=== PATIENT | female | born 1980 | race Caucasian/White ===

== ENCOUNTER 2023-08-19 13:50 | Emergency (ER) | payer MEDICAID ==
[~2023-08-19] VITALS: Ht 165 cm; Wt 86.0 kg
[2023-08-19 14:27] LABS: ALBUMIN 3.8 GM/DL (3.2-4.5); POTASSIUM 3.8 MMOL/L (3.6-5.0)
[2023-08-19 14:28] LABS: CALCIUM 9.2 MG/DL (8.5-10.1)
[2023-08-19 14:29] LABS: BASOPHILS # (AUTO) 0.1 10^3/uL (0.0-0.1); BASOPHILS % (AUTO) 1 % (0-10); EOSINOPHILS # (AUTO) 0.5 10^3/uL (0.0-0.3); EOSINOPHILS % (AUTO) 5 % (0-10); HEMATOCRIT 38 % (35-52); HEMOGLOBIN 12.8 g/dL (11.5-16.0); LYMPHOCYTES # (AUTO) 4.6 10^3/uL (1.0-4.0); LYMPHOCYTES % (AUTO) 43 % (12-44); MEAN CORPUSCULAR HEMOGLOBIN 33 pg (25-34); MEAN CORPUSCULAR HGB CONC 33 g/dL (32-36); MEAN CORPUSCULAR VOLUME 100 fL (80-99); MONOCYTES # (AUTO) 0.4 10^3/uL (0.0-1.0); MONOCYTES % (AUTO) 4 % (0-12); NEUTROPHILS % (AUTO) 47 % (42-75); PLATELET COUNT 308 10^3/uL (130-400); TOTAL PROTEIN 6.9 GM/DL (6.4-8.2); WHITE BLOOD COUNT 10.7 10^3/uL (4.3-11.0)
[2023-08-19] MEDS ORDERED: ONDANSETRON INJECTION 4 MG/2 ML (SDV) IVP ONE (14:30)
[2023-08-19 14:31] LABS: BILIRUBIN,TOTAL 0.5 MG/DL (0.1-1.0)
[2023-08-19 14:33] LABS: CREATININE SERUM 0.83 MG/DL (0.60-1.30)
[2023-08-19 14:36] LABS: MAGNESIUM 1.9 MG/DL (1.6-2.4)
--- NOTE | 2023-08-19 14:55 | Diagnostic Imaging Report ---
EXAMINATION: Chest 1 view HISTORY: Chest pain. Dizziness. COMPARISON: None available. FINDINGS: The lung volumes are normal. No focal consolidation is seen. No large pleural effusion or pneumothorax is seen. The cardiomediastinal silhouette is normal in size and contour. No acute osseous abnormality is seen. IMPRESSION: 1. No acute pleuroparenchymal process. Dictated by: Dictated on workstation # [id number]
[2023-08-19 15:36] LABS: CLARITY,URINE CLEAR; COLOR,URINE YELLOW; PH,URINE 5.5 (5-9)
[2023-08-19 15:37] LABS: BACTERIA,URINE TRACE /HPF; BILIRUBIN,URINE NEGATIVE (NEGATIVE); GLUCOSE, URINE (UA) NEGATIVE (NEGATIVE); KETONES,URINE NEGATIVE (NEGATIVE); LEUKOCYTE ESTERASE ,URINE NEGATIVE (NEGATIVE); NITRITE,URINE NEGATIVE (NEGATIVE); PROTEIN,URINE NEGATIVE (NEGATIVE); WBC,URINE RARE /HPF
--- NOTE | 2023-08-19 16:26 | ED Syncope ---
General Chief Complaint: Dizziness/Syncope Stated Complaint: SYNCOPAL EPISODE Nursing Triage Note: PT TO [facility] [place] FEELING DIZZY PRIOR TO ARRIVAL. PT ALMOST FELL BUT CAUGHT HER BEFORE FALLING. PT DENIES INJURY History of Present Illness Date Seen by Provider: Aug 19, 2023 Time Seen by Provider: 14:19 Allergies and Home Medications Allergies Coded Allergies: dexamethasone (Verified Allergy, Unknown, 08/19/23) sertraline (Verified Allergy, Unknown, 08/19/23) sulfamethoxazole (Verified Allergy, Unknown, 08/19/23) trimethoprim (Verified Allergy, Unknown, 08/19/23) Patient Home Medication List Home Medication List Reviewed: Yes Past Cqjjxaj-Mlucot-Zucwqk Hx Patient Social History Tobacco Use?: Yes Tobacco type used: Cigarettes Substance use?: No Alcohol Use?: No Immunizations Up To Date Influenza Vaccine Up-to-Date: No; Not Current Past Medical History Surgery/Hospitalization HX: TUBAL HTN, NON SUSTAINED TACH, NEUROGENIC BLADDER Physical Exam Vital Signs Vital Signs - First Documented 08/19/23 13:50 Temp 36.4 Pulse 72 Resp 20 B/P (MAP) 142/80 (100) Pulse Ox 97 O2 Delivery Room Air Capillary Refill : Height, Weight, BMI Height: '" Weight: lbs. oz. kg; 31.00 BMI Method: Progress/Results/Core Measures Results/Orders Lab Results Laboratory Tests Test 08/19/23 13:57 08/19/23 15:10 Range/Units White Blood Count 10.7 4.3-11.0 10^3/uL Red Blood Count 3.84 3.80-5.11 10^6/uL Hemoglobin 12.8 11.5-16.0 g/dL Hematocrit 38 35-52 % Mean Corpuscular Volume 100 H 80-99 fL Mean Corpuscular Hemoglobin 33 25-34 pg Mean Corpuscular Hemoglobin Concent 33 32-36 g/dL Red Cell Distribution Width 12.8 10.0-14.5 % Platelet Count 308 130-400 10^3/uL Mean Platelet Volume 10.0 9.0-12.2 fL Immature Granulocyte % (Auto) 0 % Neutrophils (%) (Auto) 47 42-75 % Lymphocytes (%) (Auto) 43 12-44 % Monocytes (%) (Auto) 4 0-12 % Eosinophils (%) (Auto) 5 0-10 % Basophils (%) (Auto) 1 0-10 % Neutrophils # (Auto) 5.0 1.8-7.8 10^3/uL Lymphocytes # (Auto) 4.6 H 1.0-4.0 10^3/uL Monocytes # (Auto) 0.4 0.0-1.0 10^3/uL Eosinophils # (Auto) 0.5 H 0.0-0.3 10^3/uL Basophils # (Auto) 0.1 0.0-0.1 10^3/uL Immature Granulocyte # (Auto) 0.0 0.0-0.1 10^3/uL Prothrombin Time 13.0 12.2-14.7 SEC INR Comment 1.0 0.8-1.4 Activated Partial Thromboplast Time 29 24-35 SEC Sodium Level 137 135-145 MMOL/L Potassium Level 3.8 3.6-5.0 MMOL/L Chloride Level 106 98-107 MMOL/L Carbon Dioxide Level 24 21-32 MMOL/L Anion Gap 7 5-14 MMOL/L Blood Urea Nitrogen 10 7-18 MG/DL Creatinine 0.83 0.60-1.30 MG/DL Estimat Glomerular Filtration Rate 91 BUN/Creatinine Ratio 12 Glucose Level 108 H 70-105 MG/DL Calcium Level 9.2 8.5-10.1 MG/DL Corrected Calcium 9.4 8.5-10.1 MG/DL Magnesium Level 1.9 1.6-2.4 MG/DL Total Bilirubin 0.5 0.1-1.0 MG/DL Aspartate Amino Transf (AST/SGOT) 13 5-34 U/L Alanine Aminotransferase (ALT/SGPT) 14 0-55 U/L Alkaline Phosphatase 71 40-136 U/L Myoglobin 31.1 10.0-92.0 NG/ML Troponin I < 0.028 <0.028 NG/ML Total Protein 6.9 6.4-8.2 GM/DL Albumin 3.8 3.2-4.5 GM/DL Urine Color YELLOW Urine Clarity CLEAR Urine pH 5.5 5-9 Urine Specific [place] 1.010 L 1.016-1.022 Urine Protein NEGATIVE NEGATIVE Urine Glucose (UA) NEGATIVE NEGATIVE Urine Ketones NEGATIVE NEGATIVE Urine Nitrite NEGATIVE NEGATIVE Urine Bilirubin NEGATIVE NEGATIVE Urine Urobilinogen 0.2 < = 1.0 MG/DL Urine Leukocyte Esterase NEGATIVE NEGATIVE Urine RBC (Auto) TRACE H NEGATIVE Urine RBC NONE /HPF Urine WBC RARE /HPF Urine Squamous Epithelial Cells 2-5 /HPF Urine Crystals NONE /LPF Urine Bacteria TRACE /HPF Urine Casts NONE /LPF Urine Mucus NEGATIVE /LPF Urine Culture Indicated NO My Orders Orders - JAZMIN GUERRERO MD Ed Iv/Invasive Line Start (08/19/23 14:19) Ekg Tracing (08/19/23 14:19) Monitor-Rhythm Ecg Trace Only (08/19/23 14:19) Cbc And Automated Diff (08/19/23 14:19) Comprehensive Metabolic Panel (08/19/23 14:19) Magnesium (08/19/23 14:19) Ua Culture If Indicated (08/19/23 14:19) Ondansetron Injection (Ondansetron Inj (08/19/23 14:30) Chest 1 View, Ap/Pa Only (08/19/23 14:29) Myoglobin Serum (08/19/23 14:29) Protime With Inr (08/19/23 14:29) Partial Thromboplastin Time (08/19/23 14:29) Troponin I Jamil (08/19/23 14:29) Medications Given in ED Current Medications Medications Dose Ordered Sig/Justin Route Start Time Stop Time Status Last Admin Dose Admin Ondansetron HCl 4 mg ONCE ONCE IVP 08/19/23 14:30 08/19/23 14:31 DC 08/19/23 14:45 4 MG Vital Signs/I&O 08/19/23 08/19/23 13:50 17:15 Temp 36.4 Pulse 72 63 Resp 20 12 B/P (MAP) 142/80 (100) 124/65 Pulse Ox 97 98 O2 Delivery Room Air Blood Pressure Mean: 100 Progress Progress Note : Progress Note I explained the necessity of admission as the cause of her syncope could be related to dangerous arrhythmia. If such an arrhythmia were left undetected and untreated, it could potentially be fatal. Patient expressed understanding. Despite my explanation, she walked out AGAINST MEDICAL ADVICE after initially being agreeable to admission. Initial ECG Impression Date: Aug 19, 2023 Initial ECG Impression Time: 14:42 Initial ECG Rate: 62 Initial ECG Rhythm: Normal Sinus Initial ECG Intervals: Normal Initial ECG Impression: Normal Comment Normal sinus rhythm with no ST elevation or depression. No abnormal intervals or axis deviation. Departure Impression Primary Impression: Syncope Qualified Codes: R55 - Syncope and collapse Disposition: 07 AGAINST MEDICAL ADVICE Condition: Against Medical Advice Departure-Patient Inst. Referrals: NO,LOCAL PHYSICIAN (PCP/Family) Primary Care Physician JAZMIN GUERRERO MD Aug 19, 2023 16:26
[2023-08-19 17:15] VITALS: BP 124/65
== END 2023-08-19 17:15 | disposition left against medical advice (07) ==
LOC: ER 13:55
DX: R55 Syncope and collapse (principal); F17.210 Nicotine dependence, cigarettes, uncomplicated
CPT/HCPCS: 36415; 71045; 80053; 81000; 83735; 83874; 84484; 85025; 85610; 85730; 93005; 93041